=== PATIENT | male | born 1980 | race African-American/Black ===

== ENCOUNTER → 2020-07-10 | Outpatient (CLI) | payer MEDICAID ==
[~2020-07-10] MED LIST: LISI40TA4
== END | disposition home or self-care (01) ==
LOC: LAB 12:53
PROVIDERS: ATTEND Orthopaedic Surgery
DX: Z01.812 Encounter for preprocedural laboratory examination (principal); Z20.828 Contact with and (suspected) exposure to other viral communicable diseases; M17.31 Unilateral post-traumatic osteoarthritis, right knee
CPT/HCPCS: C9803; U0003